=== PATIENT | female | born 1950 | race African-American/Black ===

== ENCOUNTER 2016-11-17 04:02 | Inpatient (IN) | payer OTHER ==
[~2016-11-17] VITALS: Ht 162.6 cm; Wt 80.2 kg
[2016-11-17 04:16] LABS: CREATININE 0.9 mg/dL (0.6-1.3); POTASSIUM 3.6 mEq/L (3.7-5.4)
[2016-11-17 04:39] LABS: HEMATOCRIT 37.3 % (36.0-46.0); MCH 28.5 PG (29.0-34.0); MCHC 31.6 G/DL (30.0-36.0); MCV 90.1 FL (83-99); RBC DIS.WIDTH-CV 13.8 % (11.8-14.6); RBC DIS.WIDTH-SD 46.1 % (39-53); RED BLOOD COUNT 4.14 M/uL (3.80-5.20); WHITE BLOOD COUNT 10.8 K/uL (4.1-10.2)
[2016-11-17 04:49] LABS: CHLORIDE 106 mEq/L (99-109); POTASSIUM 3.5 mEq/L (3.7-5.4); SODIUM 138 mEq/L (136-147)
[2016-11-17 04:50] LABS: GLUCOSE 146 mg/dL (70-99)
[2016-11-17 04:52] LABS: ANION GAP 16 MEQ/L (2-14)
[2016-11-17 04:54] LABS: GFR ESTIMATE (CALCULATED) > 59 mL/min/
[2016-11-17 04:55] LABS: UREA NITROGEN (BUN) 12 mg/dL (9-23)
[2016-11-17 05:03] LABS: INTER. NORMALIZED RATIO 1.1; PROTHROMBIN TIME 11.6 (9.2-11.2); PTT 21.9 (25-32)
[2016-11-17] MEDS ORDERED: ATENOLOL50 MG PO (05:47)
[2016-11-17] MEDS ORDERED: AMLODIPINE BESYL5 MG PO (05:47)
[2016-11-17 05:55] LABS: HEMATOLOGY COMMENT 1 SN; MEAN PLAT.VOLUME 12.5 uM^3 (9.5-12.4); PLATELET COUNT 143 K/uL (156-360)
[2016-11-17 10:31] VITALS: BP 142/83
[2016-11-17 11:32] LABS: HDL CHOLESTEROL 50 MG/DL (Desirable>=50); LDL CHOLESTEROL 151 mg/dL (Desirable<100); NON-HDL CHOLESTEROL 160 mg/dL (Desirable<160); TOTAL CHOLESTEROL 210 mg/dL (Desirable<200); TRIGLYCERIDES 47 MG/DL (Normal: <150)
[2016-11-17 11:48] VITALS: BP 137/74
[2016-11-17 12:06] LABS: Estimated Average Glucose 146 mg/dL (70-123); HEMOGLOBIN A1c (GLYCOHEMOGLOB) 6.7 % HGB (Below 5.7)
[2016-11-17] MEDS ORDERED: VENTOLIN HFA18 GM IH (15:31)
[2016-11-17] MEDS ORDERED: FLUTICASONE PRO16 GM BOTH NARES (15:31)
[2016-11-17] MEDS ORDERED: ALENDRONATE SOD70 MG PO (15:31)
[2016-11-17 17:41] VITALS: BP 128/75
[2016-11-17 19:47] VITALS: BP 156/90
[2016-11-17 23:57] VITALS: BP 147/76
[2016-11-18 03:31] VITALS: BP 132/79
[2016-11-18 06:50] LABS: HEMATOCRIT 36.5 % (36.0-46.0); MCH 28.3 PG (29.0-34.0); MCHC 32.1 G/DL (30.0-36.0); MCV 88.4 FL (83-99); RBC DIS.WIDTH-CV 14.2 % (11.8-14.6); RBC DIS.WIDTH-SD 45.9 % (39-53); RED BLOOD COUNT 4.13 M/uL (3.80-5.20); WHITE BLOOD COUNT 11.4 K/uL (4.1-10.2)
[2016-11-18 07:13] LABS: ALKALINE PHOSPHATASE 76 IU/L (3-129); ANION GAP 8 MEQ/L (2-14); CHLORIDE 106 MEQ/L (99-109); GFR ESTIMATE (CALCULATED) > 59 mL/min/; GLUCOSE 132 mg/dL (70-99); POTASSIUM 3.6 MEQ/L (3.7-5.4); SAMPLE HEMOLYSIS CHECK 0; SAMPLE ICTERIC CHECK 0; SAMPLE LIPEMIA CHECK 0; SODIUM 138 MEQ/L (136-147); TOTAL BILIRUBIN 0.5 MG/DL (0.0-1.0); UREA NITROGEN (BUN) 12 mg/dL (9-23)
[2016-11-18 07:54] VITALS: BP 124/72
[2016-11-18 08:18] LABS: MEAN PLAT.VOLUME 12.3 uM^3 (9.5-12.4); PLATELET COUNT 141 K/uL (156-360)
[2016-11-18 11:43] VITALS: BP 132/66
[2016-11-18 16:27] VITALS: BP 117/65
[2016-11-18 19:29] VITALS: BP 147/93
[2016-11-19] VITALS (7 sets, daily range): BP systolic 117–147; BP diastolic 64–72
[2016-11-19 07:50] LABS: ANION GAP 10 MEQ/L (2-14); CHLORIDE 107 MEQ/L (99-109); GFR ESTIMATE (CALCULATED) > 59 mL/min/; GLUCOSE 103 mg/dL (70-99); POTASSIUM 3.4 MEQ/L (3.7-5.4); SAMPLE HEMOLYSIS CHECK 0; SAMPLE ICTERIC CHECK 0; SAMPLE LIPEMIA CHECK 0; SODIUM 140 MEQ/L (136-147); UREA NITROGEN (BUN) 13 mg/dL (9-23)
[2016-11-20 03:57] VITALS: BP 128/74
[2016-11-20 07:30] VITALS: BP 160/73
[2016-11-20 09:49] LABS: ANION GAP 10 MEQ/L (2-14); CHLORIDE 106 MEQ/L (99-109); GFR ESTIMATE (CALCULATED) > 59 mL/min/; GLUCOSE 103 mg/dL (70-99); SAMPLE HEMOLYSIS CHECK 0; SAMPLE ICTERIC CHECK 0; SAMPLE LIPEMIA CHECK 0; SODIUM 139 MEQ/L (136-147); UREA NITROGEN (BUN) 9 mg/dL (9-23)
[2016-11-20 11:30] VITALS: BP 146/79
[2016-11-20 16:40] VITALS: BP 146/73
[2016-11-20 19:34] VITALS: BP 161/80
[2016-11-21] VITALS: BP 138/84
[2016-11-21 04:00] VITALS: BP 133/78
[2016-11-21 08:45] VITALS: BP 152/72
[2016-11-21 11:41] VITALS: BP 154/74
[2016-11-21] MEDS ORDERED: ATORVASTATIN CA40 MG PO (13:29)
[2016-11-21] MEDS ORDERED: LO-DOSE ASPIRIN81 M2 PO (13:30)
[2016-11-21 15:54] VITALS: BP 158/74
== END 2016-11-21 13:32 | DRG 65 ==
LOC: EME → EDBD 04:02 → 5SOUTH 05:53 → EDOF 05:53 → 5SOUTH 07:20
PROVIDERS: Emergency Medicine; Internal Medicine
DX: I63.9 Cerebral infarction, unspecified (principal); G81.12 Spastic hemiplegia affecting left dominant side; I10 Essential (primary) hypertension; E87.6 Hypokalemia; J45.909 Unspecified asthma, uncomplicated
CPT/HCPCS: 70496; 70498; 70551; 71010; 80047; 80048; 80053; 80061; 83036; 85027; 85610; 85730; 92526 GN; 92610 GN; 93005; 93306; 94640; 97530 GP; 99202; 99281; 99285; J1650; J7042

== ENCOUNTER 2017-04-04 22:05 | Inpatient (IN) | payer OTHER ==
[~2017-04-04] VITALS: Ht 165.1 cm; Wt 70.2 kg
[~2017-04-04 22:05] MED LIST: ALENDRONATE SOD70 MG PO; AMLODIPINE BESYL5 MG PO; ATENOLOL50 MG PO; ATORVASTATIN CA40 MG PO; FLUTICASONE PRO16 GM BOTH NARES; LO-DOSE ASPIRIN81 M2 PO; VENTOLIN HFA18 GM IH
[2017-04-04 22:33] LABS: EOSINOPHIL (%) 4.9 % (0-5); EOSINOPHIL COUNT 0.5 K/uL (0-0.3); HEMATOCRIT 39.6 % (36.0-46.0); IMMATURE GRANULOCYTE (%) 0.1 % (0.0-0.7); INSTRUMENT ABS NEUTROPHIL CT 3.6 K/uL; LYMPHOCYTE COUNT 4.3 K/uL (1.0-2.8); MCH 29.8 PG (29.0-34.0); MCHC 33.1 G/DL (30.0-36.0); MCV 90.2 FL (83-99); MEAN PLAT.VOLUME 12.6 uM^3 (9.5-12.4); MONOCYTE (%) 7.5 % (3-12); MONOCYTE COUNT 0.7 K/uL (0-0.8); NEUTROPHIL (%) 39.6 % (45-76); NEUTROPHIL COUNT 3.6 K/uL (1.8-6.4); PLATELET COUNT 165 K/uL (156-360); RBC DIS.WIDTH-CV 14.6 % (11.8-14.6); RBC DIS.WIDTH-SD 48.4 % (39-53); RED BLOOD COUNT 4.39 M/uL (3.80-5.20); WHITE BLOOD COUNT 9.1 K/uL (4.1-10.2)
[2017-04-04 22:49] LABS: CHLORIDE 102 mEq/L (99-109); POTASSIUM 3.5 mEq/L (3.7-5.4); SODIUM 141 mEq/L (136-147)
[2017-04-04 22:51] LABS: GLUCOSE 182 mg/dL (70-99)
[2017-04-04 22:52] LABS: ANION GAP 15 MEQ/L (2-14)
[2017-04-04 22:53] LABS: TOTAL BILIRUBIN 0.4 mg/dL (0.0-1.0)
[2017-04-04 22:55] LABS: ALKALINE PHOSPHATASE 68 IU/L (3-129); GFR ESTIMATE (CALCULATED) > 59 mL/min/
[2017-04-04 22:56] LABS: UREA NITROGEN (BUN) 9 mg/dL (9-23)
[2017-04-04 23:02] LABS: TROP-I INTERPRETATION NEGATIVE; TROPONIN-I 0.03 ng/mL (0.0-0.30)
[2017-04-05] MEDS ORDERED: LITE COAT ASPI325 M1 PO (00:43)
[2017-04-05] MEDS ORDERED: SENOKOT S,PE1 TABLET PO (00:44)
[2017-04-05] MEDS ORDERED: LISINOPRIL10 MG PO (00:44)
[2017-04-05] MEDS ORDERED: ERGOCALCIF50000 UNIT PO (00:45)
[2017-04-05] MEDS ORDERED: CALCIUM500 M4 PO (00:47)
[2017-04-05] MEDS ORDERED: CILOSTAZOL50 MG PO (00:48)
[2017-04-05] MEDS ORDERED: ROBITUSSIN DM118 ML PO (00:49)
[2017-04-05] MEDS ORDERED: TYLENOL REGULA325 MG PO (00:49)
[2017-04-05 01:07] LABS: ADD MIUA? NO; BILIRUBIN NEGATIVE; BLOOD NEGATIVE; COLOR STRAW ((YELLOW)); GLUCOSE (STRIP) 50; KETONES NEGATIVE; LEUKOCYTES NEGATIVE; NITRITE NEGATIVE; PROTEIN (STRIP) 30; SPECIFIC GRAVITY 1.009 (1.000-1.030); UCUL ADDED? NO; UROBILINOGEN 0.2 MG/DL (0.2-1.0)
[2017-04-05 03:45] VITALS: BP 140/82
[2017-04-05 05:43] LABS: MCH 29.6 PG (29.0-34.0); MCHC 32.3 G/DL (30.0-36.0); MCV 91.5 FL (83-99); RBC DIS.WIDTH-CV 14.8 % (11.8-14.6); RBC DIS.WIDTH-SD 50.2 % (39-53); RED BLOOD COUNT 4.26 M/uL (3.80-5.20); WHITE BLOOD COUNT 10.2 K/uL (4.1-10.2)
[2017-04-05 06:08] LABS: MEAN PLAT.VOLUME 12.7 uM^3 (9.5-12.4); PLAT.SUFFICIENCY DECREASED; PLATELET COUNT 148 K/uL (156-360)
[2017-04-05 06:16] LABS: GFR ESTIMATE (CALCULATED) > 59 mL/min/
[2017-04-05 11:46] VITALS: BP 132/71
[2017-04-05 15:44] VITALS: BP 114/65
[2017-04-05 19:43] VITALS: BP 129/69
[2017-04-05 22:01] LABS: ANION GAP 11 MEQ/L (2-14); CHLORIDE 105 MEQ/L (99-109); POTASSIUM 4.2 MEQ/L (3.7-5.4); SAMPLE HEMOLYSIS CHECK 0; SAMPLE ICTERIC CHECK 0; SAMPLE LIPEMIA CHECK 0; SODIUM 139 MEQ/L (136-147)
[2017-04-05 22:07] LABS: GFR ESTIMATE (CALCULATED) > 59 mL/min/; GLUCOSE 196 mg/dL (70-99); UREA NITROGEN (BUN) 7 mg/dL (9-23)
[2017-04-05 23:49] VITALS: BP 121/64
[2017-04-06 06:26] LABS: MCH 30.9 PG (29.0-34.0); MCHC 33.4 G/DL (30.0-36.0); MCV 92.3 FL (83-99); MEAN PLAT.VOLUME 13.5 uM^3 (9.5-12.4); PLATELET COUNT 136 K/uL (156-360); RBC DIS.WIDTH-CV 15.3 % (11.8-14.6); RBC DIS.WIDTH-SD 51.8 % (39-53); RED BLOOD COUNT 3.79 M/uL (3.80-5.20); WHITE BLOOD COUNT 7.4 K/uL (4.1-10.2)
[2017-04-06 06:51] LABS: ANION GAP 8 MEQ/L (2-14); CHLORIDE 108 MEQ/L (99-109); GFR ESTIMATE (CALCULATED) > 59 mL/min/; POTASSIUM 4.2 MEQ/L (3.7-5.4); SAMPLE HEMOLYSIS CHECK 0; SAMPLE ICTERIC CHECK 0; SAMPLE LIPEMIA CHECK 0; SODIUM 141 MEQ/L (136-147); UREA NITROGEN (BUN) 8 mg/dL (9-23)
[2017-04-06 06:55] LABS: GLUCOSE 119 mg/dL (70-99)
[2017-04-06 09:00] VITALS: BP 138/80
[2017-04-06 11:59] VITALS: BP 129/94
[2017-04-06 15:00] VITALS: BP 132/71
[2017-04-06 19:25] VITALS: BP 132/93
[2017-04-06 23:38] VITALS: BP 133/76
[2017-04-07 09:15] VITALS: BP 129/70
[2017-04-07 11:16] VITALS: BP 138/69
[2017-04-07 15:17] VITALS: BP 140/68
[2017-04-07 19:57] VITALS: BP 162/80
[2017-04-07 23:27] VITALS: BP 120/76
[2017-04-08 03:38] VITALS: BP 121/74
[2017-04-08 07:43] VITALS: BP 131/62
== END 2017-04-08 11:51 | DRG 641 ==
LOC: EME → EDBD 22:05 → 5SOUTH 04-05 01:52 → EDOF 04-05 01:52 → ENRESERV 04-05 01:54 → 5SOUTH 04-05 03:16
PROVIDERS: Emergency Medicine; Hospitalist; Physician Assistant Medical
DX: E87.2 Acidosis (principal); I69.354 Hemiplegia and hemiparesis following cerebral infarction affecting left non-dominant side; J98.11 Atelectasis; I11.9 Hypertensive heart disease without heart failure; J45.909 Unspecified asthma, uncomplicated; M19.90 Unspecified osteoarthritis, unspecified site; E78.5 Hyperlipidemia, unspecified; E86.0 Dehydration; Z79.82 Long term (current) use of aspirin; Z83.3 Family history of diabetes mellitus; Z82.49 Family history of ischemic heart disease and other diseases of the circulatory system
CPT/HCPCS: 70450; 71010; 71250; 74176; 80048; 80053; 81003; 82550; 82565; 83605; 84484; 85025; 85027; 87040; 94640; 94640 76; 94799; 99202; 99281; 99285; J1650; J2250; J2543; J3370; J7030